=== PATIENT | female | born 1945 | race Caucasian/White ===

== ENCOUNTER → 2017-11-08 | Outpatient (CLI) | payer MEDICARE, OTHER ==
[~2017-11-08] MED LIST: ACEDIPPM PO; AMLO5 PO; ASPI325 PO; Amoxicillin500 M1 PO; CENTRUM SILVER1 EAC2 PO; CEPH500 PO; CHOL10002 PO; CLIN1TS; ESTR1 PO; Estrace Vagin42.5 GM VAG; IBUP800 PO; LEVSOD100 PO; LEVSOD88 PO; LOSA25 PO; LOSARTAN HCTZ PO; MAGGLU250 PO; MAGOXI400 PO; MELA3 PO; METF500 PO; METF500C PO; MINO100 PO; MULVITMIND PO; Neurontin 300300 MG PO; PREG150 PO; Percocet 5-3251 EACH PO; Restasis1 EACH; SELENIUM PO; SELENIUM200 MCG PO; SIMV40 PO; TELM80/12.5 PO; VITAMIN D-32000 UNIT PO; WARF5 PO
[2017-11-08 10:39] LABS: Source, Urine Clean Catch
[2017-11-08 13:23] LABS: Bilirubin, Urine Neg (Neg); Blood, Urine 3+ (Neg); Glucose Qualitative, Urine Neg (Neg); Ketones, Urine Neg (Neg); Leukocyte Esterase, Urine 3+ (Neg); Nitrite, Urine Pos (Neg); Protein, Urine 2+ (Neg); Urobilinogen, Urine NORM (Normal); pH, Urine 6.5 (5.0-8.0)
[2017-11-08 13:42] LABS: Appearance, Urine Turbid (Clear); Color, Urine Yellow (P-Yellow)
[2017-11-08 13:43] LABS: Bacteria Many /hpf; White Blood Cells, Urine TNTC /hpf (0-5)
[2017-11-08 13:45] LABS: Squamous Epithelial Cells Few /hpf (Few)
== END | disposition home or self-care (01) ==
LOC: LAB 09:35
PROVIDERS: Nurse Practitioner Obstetrics & Gynecology
DX: R30.0 Dysuria (principal)
CPT/HCPCS: 81001; 87077; 87086; 87186

== ENCOUNTER → 2017-11-24 | Outpatient (CLI) | payer MEDICARE, OTHER ==
[~2017-11-24] MED LIST changes: -ASPI325 PO; -Amoxicillin500 M1 PO; -CENTRUM SILVER1 EAC2 PO; -CLIN1TS; -Estrace Vagin42.5 GM VAG; -IBUP800 PO; -LEVSOD88 PO; -LOSA25 PO; -MAGOXI400 PO; -MELA3 PO; -METF500C PO; -Neurontin 300300 MG PO; -Percocet 5-3251 EACH PO; -Restasis1 EACH; -SELENIUM200 MCG PO; -VITAMIN D-32000 UNIT PO
[2017-11-24 17:17] LABS: Source, Urine Clean Catch
[2017-11-24 18:23] LABS: Bilirubin, Urine Neg (Neg); Blood, Urine Neg (Neg); Glucose Qualitative, Urine Neg (Neg); Ketones, Urine Neg (Neg); Leukocyte Esterase, Urine Neg (Neg); Nitrite, Urine Neg (Neg); Protein, Urine Neg (Neg); Specific Gravity, Urine 1.015 (1.003-1.022); Urobilinogen, Urine NORM (Normal); pH, Urine 6.5 (5.0-8.0)
[2017-11-24 18:34] LABS: Appearance, Urine Clear (Clear); Color, Urine No Color (P-Yellow)
== END | disposition home or self-care (01) ==
LOC: LAB SHORT 17:00 → LAB 17:00
PROVIDERS: Nurse Practitioner Obstetrics & Gynecology
DX: R30.0 Dysuria (principal)
CPT/HCPCS: 81003

== ENCOUNTER 2018-02-17 06:16 | Day surgery (SDC) | payer MEDICARE, OTHER ==
[2018-02-15 10:14] LABS: Anion Gap 8 mmol/L (6-16); Blood Urea Nitrogen 20 mg/dL (8-24); Bun/Creatinine Ratio 25.7 (12.0-20.0); CO2, Blood 27 mmol/L (21-32); Calcium, Blood 9.1 mg/dL (8.5-10.1); Chloride, Blood 106 mmol/L (98-108); Creatinine, Blood 0.78 mg/dL (0.40-1.00); Glomerular Filtration Rate >60 (60-); Glucose, Blood 114 mg/dL (70-99); Potassium, Blood 4.1 mmol/L (3.5-5.5); Sodium, Blood 141 mmol/L (136-145)
[2018-02-15 10:18] LABS: Hematocrit 42.2 % (33.0-51.0); Hemoglobin 13.8 g/dL (11.5-16.0); Mean Corpuscular HGB 30.7 pg (26.0-34.0); Mean Corpuscular HGB Conc 32.7 g/dL (31.5-36.5); Mean Corpuscular Volume 94 fL (80-100); Mean Platelet Volume 10.9 fL (9.1-12.4); Platelet Count 280 K/mm3 (150-400); RDW Coefficient Variation 12.3 % (11.7-14.2); RDW Standard Deviation 42.5 fL (35.1-46.3); White Blood Cell Count 5.72 K/mm3 (4.00-11.30)
[~2018-02-17] VITALS: Ht 154.9 cm; Wt 86.6 kg
[~2018-02-17 06:16] MED LIST changes: +ASPI325 PO; +CENTRUM SILVER1 EAC2 PO; +CLIN1TS; +Estrace Vagin42.5 GM VAG; +LEVSOD88 PO; +LOSA25 PO; +MAGOXI400 PO; +MELA3 PO; +Neurontin 300300 MG PO; +Restasis1 EACH; +SELENIUM200 MCG PO; +VITAMIN D-32000 UNIT PO
[2018-02-17] MEDS ORDERED: Amoxicillin500 M1 PO (11:27)
[2018-02-17] MEDS ORDERED: METF500C PO (11:28)
[2018-02-18 04:12] LABS: BASOPHILS ABSOLUTE AUTO 0.01 K/mm3 (0.00-0.23); BASOPHILS PERCENT AUTO 0 % (0-2); EOSINOPHILS PERCENT AUTO 0 % (0-6); Hematocrit 35.4 % (33.0-51.0); Hemoglobin 11.6 g/dL (11.5-16.0); IMMATURE GRAN ABSOLUTE AUTO 0.03 K/mm3 (0.00-0.10); IMMATURE GRAN PERCENT AUTO 0 % (0-1); LYMPHOCYTES ABSOLUTE AUTO 2.13 K/mm3 (0.84-5.20); LYMPHOCYTES PERCENT AUTO 25 % (21-46); MONOCYTES ABSOLUTE AUTO 0.44 K/mm3 (0.16-1.47); MONOCYTES PERCENT AUTO 5 % (4-13); Mean Corpuscular HGB 30.8 pg (26.0-34.0); Mean Corpuscular HGB Conc 32.8 g/dL (31.5-36.5); Mean Corpuscular Volume 94 fL (80-100); Mean Platelet Volume 11.1 fL (9.1-12.4); NEUTROPHILS ABSOLUTE AUTO 6.06 K/mm3 (1.96-9.15); NEUTROPHILS PERCENT AUTO 70 % (41-73); Platelet Count 234 K/mm3 (150-400); RDW Coefficient Variation 12.2 % (11.7-14.2); RDW Standard Deviation 42.6 fL (35.1-46.3); Red Blood Cell Count 3.77 M/mm3 (3.80-5.20); White Blood Cell Count 8.67 K/mm3 (4.00-11.30)
[2018-02-18 04:33] LABS: Anion Gap 8 mmol/L (6-16); Blood Urea Nitrogen 17 mg/dL (8-24); Bun/Creatinine Ratio 22.2 (12.0-20.0); CO2, Blood 27 mmol/L (21-32); Calcium, Blood 8.8 mg/dL (8.5-10.1); Chloride, Blood 106 mmol/L (98-108); Creatinine, Blood 0.77 mg/dL (0.40-1.00); Glomerular Filtration Rate >60 (60-); Glucose, Blood 130 mg/dL (70-99); Potassium, Blood 4.4 mmol/L (3.5-5.5); Sodium, Blood 141 mmol/L (136-145)
[2018-02-18] MEDS ORDERED: Percocet 5-3251 EACH PO (08:17)
[2018-02-18] MEDS ORDERED: IBUP800 PO (08:17)
== END 2018-02-18 13:25 | disposition home or self-care (01) ==
LOC: ORSCMMR 06:16 → ORD 07:30 → ORSCMMR 07:30 → SURS 10:03 → ORSCMMR 02-18 13:25
PROVIDERS: Obstetrics & Gynecology
PROC: 0JQC0ZZ Repair Pelvic Region Subcutaneous Tissue and Fascia, Open Approach (ICD-10-PCS; principal; 2018-02-17 07:30)
DX: N81.10 Cystocele, unspecified (principal); N81.6 Rectocele; I10 Essential (primary) hypertension; E11.42 Type 2 diabetes mellitus with diabetic polyneuropathy; D68.62 Lupus anticoagulant syndrome; E78.5 Hyperlipidemia, unspecified; E07.9 Disorder of thyroid, unspecified; F32.9 Major depressive disorder, single episode, unspecified; Z86.73 Personal history of transient ischemic attack (TIA), and cerebral infarction without residual deficits; Z87.891 Personal history of nicotine dependence; Z79.82 Long term (current) use of aspirin; Z79.899 Other long term (current) drug therapy
CPT/HCPCS: 36415; 80048; 82947; 85025; 85027; 86850; 86900; 86901; J0171; J0690; J1644; J1650; J1885; J2001; J2250; J2310; J2370; J2710; J3010; J7120

== ENCOUNTER → 2018-10-31 | Outpatient (CLI) | payer MEDICARE, OTHER ==
[~2018-10-31] MED LIST changes: +Amoxicillin500 M1 PO; +IBUP800 PO; +METF500C PO; +Percocet 5-3251 EACH PO
[2018-10-31 15:13] LABS: Bilirubin, Urine Neg (Neg); Blood, Urine 2+ (Neg); Glucose Qualitative, Urine Neg (Neg); Ketones, Urine Neg (Neg); Leukocyte Esterase, Urine 3+ (Neg); Nitrite, Urine Neg (Neg); Protein, Urine 3+ (Neg); Specific Gravity, Urine 1.015 (1.003-1.022); Urobilinogen, Urine NORM (Normal)
[2018-10-31 15:21] LABS: Appearance, Urine Cloudy (Clear); Color, Urine Yellow (P-Yellow)
[2018-10-31 15:23] LABS: Squamous Epithelial Cells Few /hpf (Few); White Blood Cells, Urine TNTC /hpf (0-5)
[2018-10-31 15:24] LABS: Bacteria Mod /hpf
== END | disposition home or self-care (01) ==
LOC: LAB 15:04 → LAB SHORT 15:04
PROVIDERS: Nurse Practitioner Obstetrics & Gynecology
DX: R39.9 Unspecified symptoms and signs involving the genitourinary system (principal)
CPT/HCPCS: 81001; 87077; 87086; 87186

== ENCOUNTER → 2018-11-10 | Outpatient (CLI) | payer MEDICARE, OTHER ==
[2018-11-10 16:58] LABS: Source, Urine Clean Catch
[2018-11-10 18:28] LABS: Bilirubin, Urine Neg (Neg); Blood, Urine Neg (Neg); Glucose Qualitative, Urine Neg (Neg); Ketones, Urine Neg (Neg); Leukocyte Esterase, Urine Neg (Neg); Nitrite, Urine Neg (Neg); Protein, Urine Neg (Neg); Urobilinogen, Urine NORM (Normal)
[2018-11-10 18:46] LABS: Appearance, Urine Clear (Clear); Color, Urine Yellow (P-Yellow)
== END | disposition home or self-care (01) ==
LOC: LAB SHORT 16:53 → LAB 16:53
PROVIDERS: Nurse Practitioner Obstetrics & Gynecology
DX: N39.0 Urinary tract infection, site not specified (principal)
CPT/HCPCS: 81003

== ENCOUNTER 2020-04-25 11:59 | Inpatient (IN) | payer MEDICARE, OTHER ==
[~2020-04-25] VITALS: Ht 154.9 cm; Wt 90.7 kg
[~2020-04-25 11:59] MED LIST changes: -LEVSOD88 PO; -LOSA25 PO; -METF500C PO; -Neurontin 300300 MG PO; -Restasis1 EACH
[2020-04-25 13:14] LABS: BASOPHILS ABSOLUTE AUTO 0.05 K/mm3 (0.00-0.23); BASOPHILS PERCENT AUTO 1 % (0-2); EOSINOPHILS ABSOLUTE AUTO 0.11 K/mm3 (0.00-0.68); EOSINOPHILS PERCENT AUTO 2 % (0-6); Hematocrit 43.2 % (33.0-51.0); IMMATURE GRAN ABSOLUTE AUTO 0.02 K/mm3 (0.00-0.10); IMMATURE GRAN PERCENT AUTO 0 % (0-1); LYMPHOCYTES ABSOLUTE AUTO 2.42 K/mm3 (0.84-5.20); LYMPHOCYTES PERCENT AUTO 45 % (21-46); MONOCYTES ABSOLUTE AUTO 0.39 K/mm3 (0.16-1.47); MONOCYTES PERCENT AUTO 7 % (4-13); Mean Corpuscular HGB 29.8 pg (26.0-34.0); Mean Corpuscular HGB Conc 32.4 g/dL (31.5-36.5); Mean Corpuscular Volume 92 fL (80-100); Mean Platelet Volume 11.1 fL (9.1-12.4); NEUTROPHILS ABSOLUTE AUTO 2.34 K/mm3 (1.96-9.15); NEUTROPHILS PERCENT AUTO 44 % (41-73); Platelet Count 291 K/mm3 (150-400); RDW Coefficient Variation 13.2 % (11.7-14.2); RDW Standard Deviation 45.4 fL (35.1-46.3); White Blood Cell Count 5.33 K/mm3 (4.00-11.30)
[2020-04-25] MEDS ORDERED: METF500 PO (13:19)
[2020-04-25] MEDS ORDERED: Neurontin800 MG PO (13:20)
[2020-04-25] MEDS ORDERED: LOSA25 PO (13:20)
[2020-04-25] MEDS ORDERED: LEVSOD75 PO (13:22)
[2020-04-25] MEDS ORDERED: ZOCOR20 MG PO (13:22)
[2020-04-25] MEDS ORDERED: Amoxicillin500 MG PO (13:23)
[2020-04-25 13:25] LABS: Alanine Aminotransfer (ALT/SGP 24 U/L (12-78); Albumin, Blood 3.8 g/dL (3.4-5.0); Albumin/Globulin Ratio 1.1 (0.8-1.8); Alk Phos 62 U/L (50-136); Anion Gap 8 mmol/L (6-16); Aspartate Aminotrans (AST/SGOT 28 U/L (12-37); Bilirubin, Total 0.3 mg/dL (0.1-1.0); Blood Urea Nitrogen 22 mg/dL (8-24); Bun/Creatinine Ratio 25.4 (12.0-20.0); CO2, Blood 22 mmol/L (21-32); Calcium, Blood 9.3 mg/dL (8.5-10.1); Chloride, Blood 109 mmol/L (98-108); Creatinine, Blood 0.87 mg/dL (0.40-1.00); Globulin, Blood 3.4 g/dL (2.2-4.0); Glomerular Filtration Rate >60 (60-); Glucose, Blood 102 mg/dL (70-99); Sodium, Blood 139 mmol/L (136-145); Total Protein, Blood 7.2 g/dL (6.4-8.2); Troponin I 0.466 ng/mL (0.000-0.040)
[2020-04-25 15:28] LABS: International Normalized Ratio 0.99; Prothrombin Time Results 10.6 Sec (9.7-11.5)
[2020-04-25] MEDS ORDERED: Restasis1 EACH BOTHEYES (15:46)
--- NOTE | 2020-04-25 19:14 | NUR ---
PT ADMITTED TO FLOOR 1800. PT A/O PLEASANT COOP DENIES CHEST PAIN OR PRESSURE. H/R REG, NO MURMER NOTED. TELE PLACED. LUNGS CLEAR RESP EASY, UNLABORED. ON R.A. BT X4 LAST BM STATES THIS AM. VOIDS FREQUENTLY. STATES NO SKIN ISSUES. BED IN LOW POSITION, CALL LITE IN REACH, CALLS APPROP. SETTLED TO BED. OBTAINED DINNER FOR PT. NOTIFIED IMELDA MCNULTY FOR HEPARIN ORDERS. ALSO PENDING ANGIO TOMORROW AM. NPO MIDNNITE.
[2020-04-26 02:15] LABS: Hematocrit 41.8 % (33.0-51.0); Hemoglobin 13.8 g/dL (11.5-16.0); Mean Corpuscular HGB 30.6 pg (26.0-34.0); Mean Corpuscular Volume 93 fL (80-100); Mean Platelet Volume 10.4 fL (9.1-12.4); Platelet Count 272 K/mm3 (150-400); RDW Coefficient Variation 13.3 % (11.7-14.2); RDW Standard Deviation 45.5 fL (35.1-46.3); Red Blood Cell Count 4.51 M/mm3 (3.80-5.20)
[2020-04-26 02:41] LABS: Anion Gap 7 mmol/L (6-16); Blood Urea Nitrogen 21 mg/dL (8-24); Bun/Creatinine Ratio 22.6 (12.0-20.0); CHOL/HDL RATIO 3.4; CO2, Blood 25 mmol/L (21-32); Chloride, Blood 110 mmol/L (98-108); Cholesterol 223 mg/dL (50-200); Creatinine, Blood 0.93 mg/dL (0.40-1.00); Glomerular Filtration Rate >60 (60-); Glucose, Blood 127 mg/dL (70-99); HDL Cholesterol 65 mg/dL (>39); LDL/HDL RATIO 1.5; Low Density Lipoprotein Chol 98 mg/dL (0-110); Potassium, Blood 3.7 mmol/L (3.5-5.5); Sodium, Blood 142 mmol/L (136-145); Triglycerides 300 mg/dL (30-160); Very Low Density Lipoprot Chol 60 mg/dL (6-32)
--- NOTE | 2020-04-26 07:36 | NUR ---
SHIFT SUMMARY PT A&0 X4. BP ELEVATED, OTHERWISE VSS. SPO2 > 92% ON RA. NO EVENTS OVER NIGHT. PT DENIES CP, REPORTS SOME "PRESSURE W/ EXERTION" THAT GOES AWAY. PT NPO SINCE MIDNIGHT FOR ANGIO TODAY. HEPARIN GTT INFUSING PER ORDERS. NS GTT INFUSING PER ORDERS. REPORT GIVEN TO DAY SHIFT RN.
--- NOTE | 2020-04-26 18:31 | NUR ---
PT RETURNED FROM H/CTR. STATES TO [facility] FOR FURTHER IINTERVENTION. BYPASS. SEE NOTIFY ORDERPLACED BY THIS RN. HEPARIN RESTARTED PER ORDERS. BED IN LOW POSITION, CALL LITE IN REACH, CALLS APPROP
--- NOTE | 2020-04-26 18:34 | NUR ---
SPOKE TO DR ALVES. DO RESTART HEPARIN. DO NOT DEFLATE TR BAND YET. IF NO BED IN 4 HRS, 0, STOP HEPARIN DRIP. WAIT ONE HOUR, THEN BEGIN DEFLATING TR BAND, 1 CC / 1/2 HR. ONCE DEFLATED, KEEP HEPARIN OFF FOR 4 HRS, THEN ALEKSANDRA RESTART HEPARIN DRIP. CALLED AND UPDATEDD ALEKSANDRA MAR STOP N/S.
--- NOTE | 2020-04-26 21:57 | NUR ---
PRIMARY RN CALLED REPORT TO PRICILA MICHAEL AT [facility] AT 2150. PT TRASNPORTED VIA GROUND AMBULANCE AT 2145. REPORT GIVEN TO PARAMEDICS AND PRICILA MICHAEL. BELONGINGS WITH PT. PT D/C'D WITH 20G L HAND, 20G R FA, AND R RADIAL TR BAND.
== END 2020-04-26 21:45 | disposition short-term general hospital (02) | DRG 282 ==
LOC: ER 11:59 → PCU 14:52
PROVIDERS: Nurse Practitioner Acute Care; Physician Assistant; ADMIT Internal Medicine
PROC: 4A023N7 Measurement of Cardiac Sampling and Pressure, Left Heart, Percutaneous Approach (ICD-10-PCS; principal; 2020-04-26)
PROC: B211YZZ Fluoroscopy of Multiple Coronary Arteries using Other Contrast (ICD-10-PCS; 2020-04-26)
DX: I21.4 Non-ST elevation (NSTEMI) myocardial infarction (principal); I10 Essential (primary) hypertension; E11.9 Type 2 diabetes mellitus without complications; E03.9 Hypothyroidism, unspecified; Z87.891 Personal history of nicotine dependence; Z79.84 Long term (current) use of oral hypoglycemic drugs; Z86.718 Personal history of other venous thrombosis and embolism; E66.01 Morbid (severe) obesity due to excess calories; Z68.37 Body mass index [BMI] 37.0-37.9, adult
CPT/HCPCS: 36415; 71046; 76937; 80048; 80053; 80061; 82947; 83880; 84443; 84484; 85025; 85027; 85610; 85730; 93005; 93010; 93454; 99152; 99153; 99285-25; A9270; A9270-GY; C1769; C1894; J1644; J2250; J3010; J7030; J7050; Q9967; U0002

== ENCOUNTER → 2021-07-08 | Outpatient (CLI) | payer MEDICARE, OTHER ==
[~2021-07-08] MED LIST changes: +Amoxicillin500 MG PO; +LEVSOD75 PO; +LOSA25 PO; +Neurontin800 MG PO; +Restasis1 EACH BOTHEYES; +ZOCOR20 MG PO
== END ==
LOC: LAB SHORT 17:11
DX: R30.0 Dysuria (principal)
CPT/HCPCS: 87077; 87086; 87186

== ENCOUNTER → 2022-05-01 | Outpatient (CLI) | payer MEDICARE, OTHER ==
[~2022-05-01] MED LIST changes: +ATOR40TA PO; +CLIN1TS TOP; +DOCU100 PO; +ESTRADIOL VAG; +FURO20 PO; +METO50 PO; +OMEP20ER PO; +Vitamin D1000 UNI1 PO
== END | disposition home or self-care (01) ==
LOC: LAB SHORT 09:38
DX: R30.0 Dysuria (principal)
CPT/HCPCS: 87077; 87086; 87186

== ENCOUNTER 2023-08-28 10:28 | Inpatient (IN) | payer MEDICARE, OTHER ==
[~2023-08-28] VITALS: Ht 154.9 cm; Wt 62.6 kg
[~2023-08-28 10:28] MED LIST changes: +ALBU90OI INH; +FLUTICASONE-SA1 EAC8 INH; +IPRATROPIUM BRO30 ML; +POTA10T PO; +SENN187 PO
[2023-08-28] MEDS ORDERED: JANTOVEN6 MG PO (10:41)
[2023-08-28 11:05] LABS: BASOPHILS ABSOLUTE AUTO 0.05 K/mm3 (0.00-0.23); BASOPHILS PERCENT AUTO 1 % (0-2); EOSINOPHILS ABSOLUTE AUTO 0.18 K/mm3 (0.00-0.68); EOSINOPHILS PERCENT AUTO 3 % (0-6); Hematocrit 31.1 % (33.0-51.0); Hemoglobin 9.8 g/dL (11.5-16.0); IMMATURE GRAN ABSOLUTE AUTO 0.02 K/mm3 (0.00-0.10); IMMATURE GRAN PERCENT AUTO 0 % (0-1); LYMPHOCYTES ABSOLUTE AUTO 1.55 K/mm3 (0.84-5.20); LYMPHOCYTES PERCENT AUTO 24 % (21-46); MONOCYTES ABSOLUTE AUTO 0.44 K/mm3 (0.16-1.47); MONOCYTES PERCENT AUTO 7 % (4-13); Mean Corpuscular HGB 26.5 pg (26.0-34.0); Mean Corpuscular HGB Conc 31.5 g/dL (31.5-36.5); Mean Corpuscular Volume 84 fL (80-100); Mean Platelet Volume 10.2 fL (9.1-12.4); NEUTROPHILS ABSOLUTE AUTO 4.29 K/mm3 (1.96-9.15); NEUTROPHILS PERCENT AUTO 66 % (41-73); Platelet Count 412 K/mm3 (150-400); RDW Coefficient Variation 15.6 % (11.7-14.2); RDW Standard Deviation 47.2 fL (35.1-46.3); White Blood Cell Count 6.53 K/mm3 (4.00-11.30)
[2023-08-28 11:22] LABS: International Normalized Ratio 2.47; Prothrombin Time Results 24.6 Sec (9.7-11.5)
[2023-08-28 11:24] LABS: Albumin, Blood 3.9 g/dL (3.4-5.0); Albumin/Globulin Ratio 1.1 (0.8-1.8); Bilirubin, Total 0.5 mg/dL (0.1-1.0); Bun/Creatinine Ratio 31.1 (12.0-20.0); Calcium, Blood 9.5 mg/dL (8.5-10.1); Creatinine, Blood 1.51 mg/dL (0.40-1.00); Globulin, Blood 3.4 g/dL (2.2-4.0); Potassium, Blood 4.9 mmol/L (3.5-5.5); Total Protein, Blood 7.3 g/dL (6.4-8.2)
[2023-08-28] MEDS ORDERED: WARF6 PO (15:23)
[2023-08-28 16:01] LABS: Percent Saturation 4.2 % (15.0-50.0)
[2023-08-28 17:26] VITALS: BP 152/81
--- NOTE | 2023-08-28 18:24 | NUR ---
SHIFT SUMMARY 1645 RECEIVED PT TO RM 326 VIA GURNEY FROM ER. PT ABLE TO TX SELF TO BTHRM AND THEN TO BED. PT UP USING FWW, BRINGING IN HOME WALKER. PT ON 2L TO RM BUT SAT'S @ 100%. PT PLACED ON RA WITH SAT'S @ 98%. PT IS A&O, PLEASANT AND CO-OP. REQUESTED LACTOSE FREE DIET WITH ADA. PT ADMITTED FOR RESP FAILURE WITH HYPOXIA. SOB X1 MONTH. PT RECEIVING IV LASIX, REPORTING PO LASIX AT HOME WAS RECENTLY CHANGED TO TORSEMIDE. PT CURRENTLY EATING DINNER. NO C/O. DENIED FURTHER NEEDS. CALL LT IN REACH.
[2023-08-28 19:20] VITALS: BP 87/51
[2023-08-28 21:20] VITALS: BP 106/65
[2023-08-29 03:08] VITALS: BP 107/74
--- NOTE | 2023-08-29 05:55 | NUR ---
SHIFT SUMMARY MS DIEHL HAD SAT 87% ON ROOM AIR WHEN SHE FELL ASLEEP LAST EVENING AND HAS SLEPT WITH 2L NC OXYGEN ON. DR PATEL INFORMED AND TELEPHONE ORDER PLACED IN [employer] FOR OXYGEN THERAPY. TELEMETRY SR, NO CALLS FROM [employer]. SHE APPEARED TO HAVE SLEPT WELL AND SAID SHE RESTED OK. SHE DENIES ANY PAIN THIS MORNING. BED LOW, CALL LIGHT IN REACH. SHE HAS BEEN USING THE CALL SYSTEM TO GET STAND BY ASSISTANCE TO WALK TO BATHROOM WITH WALKER SHE GETS WEAK AND SOMETIMES DIZZY WHEN AMBULATING.
[2023-08-29 06:07] LABS: International Normalized Ratio 2.1; Prothrombin Time Results 21.1 Sec (9.7-11.5)
[2023-08-29 06:59] LABS: Bun/Creatinine Ratio 27.9 (12.0-20.0); Calcium, Blood 9.5 mg/dL (8.5-10.1); Creatinine, Blood 1.79 mg/dL (0.40-1.00); Potassium, Blood 4.3 mmol/L (3.5-5.5)
[2023-08-29 07:47] VITALS: BP 106/51
[2023-08-29 15:33] VITALS: BP 104/61
--- NOTE | 2023-08-29 16:03 | NUR ---
SHIFT SUMMARY PT RESTING QUIETLY AT START OF SHIFT. WOKE EASILY AND THEN REQUESTING SBA TO BTHRM WHILE STAFF IN RM. PT ABLE TO USE HER OWN FWW TO AMBULATE IN RM AND TO BTHRM. NO S/SX OF DISTRESS NOTED OR REPORTED. STRICT URINE RECORDED THRU OUT THE DAY. RENAL US DONE WITH PRE AND POST VOID. PT HAS REMAINED ON RA AGAIN TODAY; BIOX 95-100%. BP MEDS HELD THIS AM UNTIL DR NEAL IN TO SEE PT AND DISCUSS PLAN OF CARE. BP MEDS ON EMAR TO BE ADJUSTED TO HOME DOSE. PHARMACY HAD VERIFIED MEDICATIONS WHILE PT IN ER, BUT DID NOT UPDATE DOSES. HOME MEDICATIONS WERE THEN UPDATED UPON ADMISSION TO MEDICAL, BUT CHANGES DID NOT GET SAVED TO CHART WHEN COMPLETED FOR SOME REASON, THEREFORE HOME DOSES WERE STILL SHOWING INCORRECT ON CHART. PT HAS BEEN PLEASANT AND CO-OP. CALL APPROPRIATELY NEEDED. DENIED FURTHER NEEDS AT THIS TIME.
[2023-08-29 19:21] VITALS: BP 104/71
--- NOTE | 2023-08-30 03:53 | NUR ---
1900: ASSUMED CARE OF PT, REPORT RECEIVED FROM DAY SHIFT RN. PT LAYING IN BED ON HER BACK. A/O X4 INDEPENDENT IN THE ROOM. ABLE TO MAKE NEEDS KNOWN. NO ACUTE DISTRESS, NEEDS, OR CHANGES DURING THE SHIFT. VSS, TOLERATED MEDICATIONS WELL. NEEDS ADDRESSED AND SAFETY MEASURES TAKEN.
[2023-08-30 04:46] VITALS: BP 104/68
[2023-08-30 05:30] LABS: Hematocrit 31.2 % (33.0-51.0); Hemoglobin 9.9 g/dL (11.5-16.0); Mean Corpuscular HGB 26.5 pg (26.0-34.0); Mean Corpuscular HGB Conc 31.7 g/dL (31.5-36.5); Mean Corpuscular Volume 84 fL (80-100); Mean Platelet Volume 10.4 fL (9.1-12.4); Platelet Count 358 K/mm3 (150-400); RDW Coefficient Variation 15.8 % (11.7-14.2); RDW Standard Deviation 47.7 fL (35.1-46.3); Red Blood Cell Count 3.73 M/mm3 (3.80-5.20); White Blood Cell Count 7.24 K/mm3 (4.00-11.30)
[2023-08-30 05:39] LABS: International Normalized Ratio 2.46; Prothrombin Time Results 24.5 Sec (9.7-11.5)
[2023-08-30 06:00] LABS: Albumin, Blood 3.5 g/dL (3.4-5.0); Anion Gap 7 mmol/L (6-16); Blood Urea Nitrogen 48 mg/dL (8-24); Bun/Creatinine Ratio 33.3 (12.0-20.0); CO2, Blood 29 mmol/L (21-32); Calcium, Blood 9.3 mg/dL (8.5-10.1); Chloride, Blood 104 mmol/L (98-108); Creatinine, Blood 1.44 mg/dL (0.40-1.00); Glomerular Filtration Rate 37 (60-); Glucose, Blood 123 mg/dL (70-99); Magnesium, Blood 2.3 mg/dL (1.6-2.4); Phosphorus, Blood 4.4 mg/dL (2.5-4.9); Potassium, Blood 3.6 mmol/L (3.5-5.5); Sodium, Blood 140 mmol/L (136-145)
[2023-08-30 07:20] VITALS: BP 96/85
[2023-08-30] MEDS ORDERED: ASPI81CH PO (11:51)
[2023-08-30] MEDS ORDERED: GABA300 PO (11:56)
[2023-08-30] MEDS ORDERED: FURO40 PO (12:03)
--- NOTE | 2023-08-30 13:25 | NUR ---
SHIFT SUMMARY A7oX4, INDEPENDENT IN ROOM, COOPERATIVE. NO ACUTE EVENTS THIS SHIFT. IV REMOVED BY SYSTEMS MANAGER. DISCHARGE PACKET REVIEWED WITH PATIENT. PT DENIES ANY QUESTIONS OR CONCERNS. PATIENT DISCHARGED AT 1300 VIA WHEELCHAIR ESCORT.
== END 2023-08-30 13:02 | disposition home or self-care (01) | DRG 291 ==
LOC: ER 10:28 → MEDS 14:46 → ENPENDDIS 08-30 09:52 → MEDS 08-30 13:02
PROVIDERS: Internal Medicine; Student in an Organized Health Care Education/Training Program; ADMIT Internal Medicine
DX: I13.0 Hypertensive heart and chronic kidney disease with heart failure and stage 1 through stage 4 chronic kidney disease, or unspecified chronic kidney disease (principal); I50.33 Acute on chronic diastolic (congestive) heart failure; J96.01 Acute respiratory failure with hypoxia; N17.9 Acute kidney failure, unspecified; Z66 Do not resuscitate; I27.20 Pulmonary hypertension, unspecified; I35.0 Nonrheumatic aortic (valve) stenosis; E11.22 Type 2 diabetes mellitus with diabetic chronic kidney disease; N18.30 Chronic kidney disease, stage 3 unspecified; D50.9 Iron deficiency anemia, unspecified; E03.9 Hypothyroidism, unspecified; J44.9 Chronic obstructive pulmonary disease, unspecified; I25.2 Old myocardial infarction; Z86.718 Personal history of other venous thrombosis and embolism; Z86.711 Personal history of pulmonary embolism; Z79.01 Long term (current) use of anticoagulants; Z79.84 Long term (current) use of oral hypoglycemic drugs; Z95.1 Presence of aortocoronary bypass graft; Z87.891 Personal history of nicotine dependence; Z79.82 Long term (current) use of aspirin; Z79.51 Long term (current) use of inhaled steroids; Z79.890 Hormone replacement therapy
CPT/HCPCS: 36415; 71046; 76770; 80048; 80053; 80069; 82728; 82947; 83540; 83550; 83735; 83880; 84443; 84484; 85025; 85027; 85610; 93005; 93010; 93308; 93321; 94640; 94664; 94760; 96374; 97116; 97162; 97530; 99285-25; A9270; J1940

== ENCOUNTER 2023-09-09 15:09 | Emergency (ER) | payer MEDICARE, OTHER ==
[~2023-09-09] VITALS: Ht 154.9 cm; Wt 65.8 kg
[~2023-09-09 15:09] MED LIST changes: +ASPI81CH PO; +FURO40 PO; +GABA300 PO; +JANTOVEN6 MG PO; +WARF6 PO
[2023-09-09 16:09] LABS: BASOPHILS ABSOLUTE AUTO 0.05 K/mm3 (0.00-0.23); BASOPHILS PERCENT AUTO 1 % (0-2); EOSINOPHILS ABSOLUTE AUTO 0.12 K/mm3 (0.00-0.68); EOSINOPHILS PERCENT AUTO 2 % (0-6); Hematocrit 30.1 % (33.0-51.0); Hemoglobin 9.2 g/dL (11.5-16.0); IMMATURE GRAN ABSOLUTE AUTO 0.01 K/mm3 (0.00-0.10); IMMATURE GRAN PERCENT AUTO 0 % (0-1); LYMPHOCYTES ABSOLUTE AUTO 1.54 K/mm3 (0.84-5.20); LYMPHOCYTES PERCENT AUTO 24 % (21-46); MONOCYTES ABSOLUTE AUTO 0.43 K/mm3 (0.16-1.47); MONOCYTES PERCENT AUTO 7 % (4-13); Mean Corpuscular HGB 25.3 pg (26.0-34.0); Mean Corpuscular HGB Conc 30.6 g/dL (31.5-36.5); Mean Corpuscular Volume 83 fL (80-100); Mean Platelet Volume 10.4 fL (9.1-12.4); NEUTROPHILS ABSOLUTE AUTO 4.21 K/mm3 (1.96-9.15); NEUTROPHILS PERCENT AUTO 66 % (41-73); Platelet Count 418 K/mm3 (150-400); RDW Coefficient Variation 16.4 % (11.7-14.2); RDW Standard Deviation 49.8 fL (35.1-46.3); Red Blood Cell Count 3.63 M/mm3 (3.80-5.20); White Blood Cell Count 6.36 K/mm3 (4.00-11.30)
[2023-09-09 16:22] LABS: Influenza A, PCR NEGATIVE (NEGATIVE); Influenza B, PCR NEGATIVE (NEGATIVE); Resp Syncytial Virus, PCR NEGATIVE (NEGATIVE); SARS-Cov-2 (COVID-19) PCR, MMC NEGATIVE (NEGATIVE)
[2023-09-09 16:32] LABS: Magnesium, Blood 2.3 mg/dL (1.6-2.4)
[2023-09-09 16:33] LABS: Albumin, Blood 3.6 g/dL (3.4-5.0); Albumin/Globulin Ratio 1.1 (0.8-1.8); Bilirubin, Total 0.3 mg/dL (0.1-1.0); Bun/Creatinine Ratio 39.5 (12.0-20.0); Calcium, Blood 9.3 mg/dL (8.5-10.1); Creatinine, Blood 1.52 mg/dL (0.40-1.00); Globulin, Blood 3.3 g/dL (2.2-4.0); Potassium, Blood 4.4 mmol/L (3.5-5.5); Total Protein, Blood 6.9 g/dL (6.4-8.2)
[2023-09-09 19:17] LABS: Source, Urine Clean Catch
[2023-09-09 19:20] VITALS: BP 132/74
[2023-09-09 19:21] LABS: Appearance, Urine Hazy (Clear); Bilirubin, Urine Neg (Neg); Blood, Urine Neg (Neg); Color, Urine Yellow (P-Yellow); Glucose Qualitative, Urine Neg (Neg); Ketones, Urine Neg (Neg); Leukocyte Esterase, Urine Neg (Neg); Nitrite, Urine Neg (Neg); Protein, Urine Neg (Neg); Specific Gravity, Urine 1.015 (1.003-1.022); Urobilinogen, Urine NORM (Normal)
[2023-09-09 19:27] LABS: Bacteria Rare /hpf; Red Blood Cells, Urine 0-2 /hpf (0-2); Squamous Epithelial Cells Mod /hpf (Few); White Blood Cells, Urine 0-2 /hpf (0-5)
[2023-09-10] MEDS ORDERED: ASPI325 PO (08:59)
[2023-09-10] MEDS ORDERED: Amoxicillin500 MG PO (08:59)
[2023-09-10] MEDS ORDERED: TORSE20 PO (09:02)
[2023-09-10] MEDS ORDERED: OMEP20ER PO (09:03)
== END 2023-09-09 19:35 | disposition left against medical advice (07) ==
LOC: ER 15:09
PROVIDERS: Student in an Organized Health Care Education/Training Program
DX: R53.1 Weakness (principal); Z53.21 Procedure and treatment not carried out due to patient leaving prior to being seen by health care provider
CPT/HCPCS: 0241U; 71046; 80053; 81001; 83735; 83880; 85025; 86850; 86900; 86901; 93005; 93010; 99283-25

== ENCOUNTER 2023-09-10 08:02 | Emergency (ER) | payer MEDICARE, OTHER ==
[~2023-09-10] VITALS: Ht 154.9 cm; Wt 65.8 kg
[~2023-09-10 08:02] MED LIST changes: +GABA100 PO; -GABA300 PO; -Vitamin D1000 UNI1 PO; +Vitamin D2000 UNIT PO
[2023-09-10] MEDS ORDERED: ASPI81CH PO (08:59)
[2023-09-10] MEDS ORDERED: Amoxicillin500 MG PO (08:59)
[2023-09-10] MEDS ORDERED: TORSE20 PO (09:02)
[2023-09-10] MEDS ORDERED: OMEP20ER PO (09:03)
[2023-09-10 11:05] LABS: BASOPHILS ABSOLUTE AUTO 0.07 K/mm3 (0.00-0.23); BASOPHILS PERCENT AUTO 1 % (0-2); EOSINOPHILS ABSOLUTE AUTO 0.09 K/mm3 (0.00-0.68); EOSINOPHILS PERCENT AUTO 2 % (0-6); Hematocrit 30.6 % (33.0-51.0); Hemoglobin 9.4 g/dL (11.5-16.0); IMMATURE GRAN ABSOLUTE AUTO 0.02 K/mm3 (0.00-0.10); IMMATURE GRAN PERCENT AUTO 0 % (0-1); LYMPHOCYTES ABSOLUTE AUTO 1.43 K/mm3 (0.84-5.20); LYMPHOCYTES PERCENT AUTO 26 % (21-46); MONOCYTES ABSOLUTE AUTO 0.34 K/mm3 (0.16-1.47); MONOCYTES PERCENT AUTO 6 % (4-13); Mean Corpuscular HGB 25.1 pg (26.0-34.0); Mean Corpuscular HGB Conc 30.7 g/dL (31.5-36.5); Mean Corpuscular Volume 82 fL (80-100); Mean Platelet Volume 10.7 fL (9.1-12.4); NEUTROPHILS ABSOLUTE AUTO 3.49 K/mm3 (1.96-9.15); NEUTROPHILS PERCENT AUTO 64 % (41-73); Platelet Count 439 K/mm3 (150-400); RDW Coefficient Variation 16.5 % (11.7-14.2); RDW Standard Deviation 49.1 fL (35.1-46.3); Red Blood Cell Count 3.75 M/mm3 (3.80-5.20); White Blood Cell Count 5.44 K/mm3 (4.00-11.30)
[2023-09-10 11:19] LABS: International Normalized Ratio 2.61
[2023-09-10 11:27] LABS: Albumin, Blood 3.9 g/dL (3.4-5.0); Albumin/Globulin Ratio 1.2 (0.8-1.8); Bilirubin, Total 0.4 mg/dL (0.1-1.0); Bun/Creatinine Ratio 38.9 (12.0-20.0); Calcium, Blood 9.4 mg/dL (8.5-10.1); Creatinine, Blood 1.31 mg/dL (0.40-1.00); Globulin, Blood 3.3 g/dL (2.2-4.0); Potassium, Blood 3.9 mmol/L (3.5-5.5); Total Protein, Blood 7.2 g/dL (6.4-8.2)
[2023-09-10 13:46] VITALS: BP 151/81
== END 2023-09-10 14:03 | disposition home or self-care (01) ==
LOC: ER 08:02
PROVIDERS: Physician Assistant
DX: R06.09 Other forms of dyspnea (principal); I10 Essential (primary) hypertension; E03.9 Hypothyroidism, unspecified; E11.9 Type 2 diabetes mellitus without complications; Z86.711 Personal history of pulmonary embolism; Z87.891 Personal history of nicotine dependence; Z79.84 Long term (current) use of oral hypoglycemic drugs; Z79.82 Long term (current) use of aspirin; Z79.01 Long term (current) use of anticoagulants; Z79.899 Other long term (current) drug therapy; Z88.1 Allergy status to other antibiotic agents
CPT/HCPCS: 80053; 83880; 84484; 85025; 85610; 93005; 93010; 99285-25

== ENCOUNTER 2023-09-14 11:07 | Inpatient (IN) | payer MEDICARE, OTHER ==
[~2023-09-14] VITALS: Ht 154.9 cm; Wt 61.1 kg
[~2023-09-14 11:07] MED LIST changes: +TORSE20 PO
[2023-09-14 11:46] LABS: BASOPHILS ABSOLUTE AUTO 0.03 K/mm3 (0.00-0.23); BASOPHILS PERCENT AUTO 1 % (0-2); EOSINOPHILS PERCENT AUTO 0 % (0-6); Hematocrit 30.2 % (33.0-51.0); Hemoglobin 9.2 g/dL (11.5-16.0); IMMATURE GRAN ABSOLUTE AUTO 0.01 K/mm3 (0.00-0.10); IMMATURE GRAN PERCENT AUTO 0 % (0-1); LYMPHOCYTES ABSOLUTE AUTO 1.51 K/mm3 (0.84-5.20); LYMPHOCYTES PERCENT AUTO 29 % (21-46); MONOCYTES ABSOLUTE AUTO 0.59 K/mm3 (0.16-1.47); MONOCYTES PERCENT AUTO 11 % (4-13); Mean Corpuscular HGB 24.4 pg (26.0-34.0); Mean Corpuscular HGB Conc 30.5 g/dL (31.5-36.5); Mean Corpuscular Volume 80 fL (80-100); Mean Platelet Volume 10.3 fL (9.1-12.4); NEUTROPHILS ABSOLUTE AUTO 3.08 K/mm3 (1.96-9.15); NEUTROPHILS PERCENT AUTO 59 % (41-73); Platelet Count 375 K/mm3 (150-400); RDW Coefficient Variation 16.6 % (11.7-14.2); Red Blood Cell Count 3.77 M/mm3 (3.80-5.20); White Blood Cell Count 5.22 K/mm3 (4.00-11.30)
[2023-09-14 11:54] LABS: International Normalized Ratio 2.07; Prothrombin Time Results 20.9 Sec (9.7-11.5)
[2023-09-14 12:22] LABS: Albumin, Blood 3.4 g/dL (3.4-5.0); Albumin/Globulin Ratio 1.1 (0.8-1.8); Bilirubin, Total 0.6 mg/dL (0.1-1.0); Bun/Creatinine Ratio 34.5 (12.0-20.0); Calcium, Blood 9.1 mg/dL (8.5-10.1); Creatinine, Blood 1.39 mg/dL (0.40-1.00); Magnesium, Blood 2.1 mg/dL (1.6-2.4); Potassium, Blood 4.4 mmol/L (3.5-5.5); Total Protein, Blood 6.4 g/dL (6.4-8.2)
[2023-09-14 12:31] LABS: Source, Urine Clean Catch
[2023-09-14 12:38] LABS: Appearance, Urine Clear (Clear); Bilirubin, Urine Neg (Neg); Blood, Urine Neg (Neg); Color, Urine Yellow (P-Yellow); Glucose Qualitative, Urine Neg (Neg); Ketones, Urine 1+ (Neg); Leukocyte Esterase, Urine Neg (Neg); Nitrite, Urine Neg (Neg); Protein, Urine 2+ (Neg); Specific Gravity, Urine 1.015 (1.003-1.022); Urobilinogen, Urine NORM (Normal)
[2023-09-14 12:42] LABS: SARS-Cov-2 (COVID-19) PCR, MMC POSITIVE (NEGATIVE)
[2023-09-14 12:43] LABS: Influenza A Negative (NEGATIVE); Influenza B Negative (NEGATIVE)
[2023-09-14 12:54] LABS: Bacteria Few /hpf; Red Blood Cells, Urine 0-2 /hpf (0-2); Squamous Epithelial Cells Mod /hpf (Few); White Blood Cells, Urine 0-2 /hpf (0-5); Yeast/Fungi Urine Few /hpf
[2023-09-14 12:55] LABS: Transitional Epithelial Cells Rare /hpf (0-Rare)
[2023-09-14] MEDS ORDERED: FURO40 PO (15:01)
[2023-09-14] MEDS ORDERED: FLUT1DIS2 INH (15:02)
[2023-09-14] MEDS ORDERED: ALBU90OI INH (15:02)
[2023-09-14 16:12] VITALS: BP 105/85
[2023-09-14 16:59] LABS: International Normalized Ratio 1.89; Prothrombin Time Results 19.1 Sec (9.7-11.5)
--- NOTE | 2023-09-14 17:42 | NUR ---
PATIENT ADMITTED FROM ER AT 1620. REPORT RECEIVED FROM PRICILA MOSES. PATIENT A&OX4, SBA/IND TO BATHROOM. 2 RN SKIN CHECK PERFORM, BRUISING NOTED TO RUE. PATIENT DENIES PAIN, HEADACHE, CP/PRESSURE, OR SOB AT THIS TIME. ROOM AIR. CODE STATUS CHANGED TO DNR UPON ARRIVAL. PATIENT IS CURRENTLY RESTING IN BED. CALL LIGHT WITHIN REACH.
[2023-09-14 19:29] VITALS: BP 134/69
[2023-09-15 04:45] VITALS: BP 123/69
[2023-09-15 05:08] LABS: Hematocrit 28.1 % (33.0-51.0); Hemoglobin 8.9 g/dL (11.5-16.0); Mean Corpuscular HGB Conc 31.7 g/dL (31.5-36.5); Mean Corpuscular Volume 79 fL (80-100); Mean Platelet Volume 10.6 fL (9.1-12.4); Platelet Count 350 K/mm3 (150-400); RDW Coefficient Variation 16.8 % (11.7-14.2); RDW Standard Deviation 48.6 fL (35.1-46.3); Red Blood Cell Count 3.56 M/mm3 (3.80-5.20); White Blood Cell Count 6.86 K/mm3 (4.00-11.30)
[2023-09-15 05:30] LABS: International Normalized Ratio 1.85; Prothrombin Time Results 18.8 Sec (9.7-11.5)
--- NOTE | 2023-09-15 06:45 | NUR ---
SHIFT SUMMARY NOC PT A/O X 4. PLEASANT AND COOPERATIVE WITH CARE. PT HAS URINARY FREQUENCY AND HAS BEEN INC OF URINE X 3 SO FAR DURING SHIFT. NO C/O OF PAIN FROM RECENT FALL. ON TELE SINUS RHYTHM IN 70'S. PT RECEIVED LOADING DOSE OF WARFARIN 9MG YESTERDAY BEFORE BED. PT IS CURRENTLY RESTING WITH BED IN LOWEST POSITION, AND CALL LIGHT WITHIN REACH.
[2023-09-15 07:00] LABS: Albumin, Blood 3.2 g/dL (3.4-5.0); Bilirubin, Total 0.3 mg/dL (0.1-1.0); Bun/Creatinine Ratio 31.5 (12.0-20.0); Calcium, Blood 8.6 mg/dL (8.5-10.1); Creatinine, Blood 1.24 mg/dL (0.40-1.00); Globulin, Blood 3.2 g/dL (2.2-4.0); Magnesium, Blood 1.9 mg/dL (1.6-2.4); Phosphorus, Blood 2.6 mg/dL (2.5-4.9); Potassium, Blood 3.9 mmol/L (3.5-5.5); Total Protein, Blood 6.4 g/dL (6.4-8.2)
[2023-09-15 07:12] VITALS: BP 116/69
[2023-09-15 15:48] VITALS: BP 107/62
--- NOTE | 2023-09-15 19:22 | NUR ---
PT IS A/OX4, PLEASANT AND COOPERATIVE. THE PT IS UP WITH MINIMAL ASSIST TO THE BATHROOM. THE PT WHEN APPEARS TO BE BREATHING EASILY ON RA SAT'S > 92%, HOWEVER, WHEN LYING DOWN THE PTS' O2 SAT'S DROP INTO THE LOW 80'S TO HIGH 70'S. SO O2 WAS APPLIED AT 2L/MIN. PT HAD 2 RUNS OF SVT TODAY DR. JONES IS AWARE. PT DENIED ANY PAIN T/O THE DAY. CALL LIGHT IN REACH. WILL CONTINUE TO MONITOR AND ASSESS FOR CHANGES.
[2023-09-15 20:22] VITALS: BP 95/55
--- NOTE | 2023-09-16 03:06 | NUR ---
This nurse just informed by telemetry that pt had an 8 beat run of vtach. checked on pt who is asymptomatic and was complaining of some generalized pain. medicated per emar. will report tele event to doctor.
--- NOTE | 2023-09-16 03:13 | NUR ---
doctor Derik [facility] requested pt have cbc and mag labs in am. orders in place alreay.
[2023-09-16 03:27] VITALS: BP 106/70
--- NOTE | 2023-09-16 04:39 | NUR ---
SHIFT SUMMARY PT ALERT AND CURRENTLY HAS COVID. PT ON 2L O2 VIA NC OF YESTERDAY. PT DROPS DOWN IN THE 80S WHEN LYING FLAT. ALSO HAD SOME DECREASES IN O2 WITH AMBULATION. TELEMETRY: SR @ 71 BPM. PT DID HAVE A 8 BEAT RUN OF VTACH. NOTIFIED. CBG AT HS 192. PT IS SBA WITH FWW. PT COMPLAINED OF GEN PAIN AND REBECCA FEET PAIN. MEDICATED PER EMAR WITH TYLENOL. NO OTHER ACUTE EVENTS THIS SHIFT. BED KEPT IN LOWEST POSITION AND PT CALLS APPROPRAITELY FOR NEEDS. WILL CONTINUE TO MONITOR UNTIL END OF SHIFT.
[2023-09-16 06:09] LABS: BASOPHILS PERCENT AUTO 0 % (0-2); EOSINOPHILS PERCENT AUTO 0 % (0-6); Hematocrit 28.3 % (33.0-51.0); Hemoglobin 8.5 g/dL (11.5-16.0); IMMATURE GRAN ABSOLUTE AUTO 0.01 K/mm3 (0.00-0.10); IMMATURE GRAN PERCENT AUTO 0 % (0-1); LYMPHOCYTES ABSOLUTE AUTO 0.43 K/mm3 (0.84-5.20); LYMPHOCYTES PERCENT AUTO 11 % (21-46); MONOCYTES ABSOLUTE AUTO 0.21 K/mm3 (0.16-1.47); MONOCYTES PERCENT AUTO 5 % (4-13); Mean Corpuscular Volume 80 fL (80-100); Mean Platelet Volume 10.6 fL (9.1-12.4); NEUTROPHILS ABSOLUTE AUTO 3.22 K/mm3 (1.96-9.15); NEUTROPHILS PERCENT AUTO 83 % (41-73); Platelet Count 326 K/mm3 (150-400); RDW Coefficient Variation 16.8 % (11.7-14.2); RDW Standard Deviation 49.2 fL (35.1-46.3); Red Blood Cell Count 3.54 M/mm3 (3.80-5.20); White Blood Cell Count 3.87 K/mm3 (4.00-11.30)
[2023-09-16 06:20] LABS: International Normalized Ratio 2.07; Prothrombin Time Results 20.9 Sec (9.7-11.5)
[2023-09-16 06:27] LABS: Calcium, Blood 8.1 mg/dL (8.5-10.1); Creatinine, Blood 1.59 mg/dL (0.40-1.00); Magnesium, Blood 1.9 mg/dL (1.6-2.4); Potassium, Blood 3.8 mmol/L (3.5-5.5)
[2023-09-16 07:12] VITALS: BP 132/79
[2023-09-16] MEDS ORDERED: Acetaminophen650 M1 PO (11:24)
[2023-09-16] MEDS ORDERED: DECADRON6 M2 PO (11:30)
--- NOTE | 2023-09-16 12:37 | NUR ---
DISCHARGE SUMMARY PATIENT IS ALERT AND ORIENTED. PATIENT HAS BEEN ON ROOM AIR AND DISCHARGED HOME. PATIENT CALLED FOR A TAXI. MEDICATIONS FAXED TO PATIENTS PHARMACY. PATIENT VOLUNTEER BROUGHT PATIENT DOWN. IV REMOVED WNL
== END 2023-09-16 12:36 | disposition home health service (06) | DRG 177 ==
LOC: ER 11:07 → MEDS 11:08
PROVIDERS: Student in an Organized Health Care Education/Training Program; ADMIT Internal Medicine
PROC: 3E0DX3Z Introduction of Anti-inflammatory into Mouth and Pharynx, External Approach (ICD-10-PCS; principal; 2023-09-15)
DX: U07.1 COVID-19 (principal); I21.A1 Myocardial infarction type 2; I50.33 Acute on chronic diastolic (congestive) heart failure; I13.0 Hypertensive heart and chronic kidney disease with heart failure and stage 1 through stage 4 chronic kidney disease, or unspecified chronic kidney disease; I47.10 Supraventricular tachycardia, unspecified; N18.30 Chronic kidney disease, stage 3 unspecified; E03.9 Hypothyroidism, unspecified; E11.22 Type 2 diabetes mellitus with diabetic chronic kidney disease; I27.20 Pulmonary hypertension, unspecified; Z66 Do not resuscitate; I25.10 Atherosclerotic heart disease of native coronary artery without angina pectoris; D63.1 Anemia in chronic kidney disease; R29.6 Repeated falls; I35.0 Nonrheumatic aortic (valve) stenosis; Z79.01 Long term (current) use of anticoagulants; Z88.8 Allergy status to other drugs, medicaments and biological substances; Z79.890 Hormone replacement therapy; Z79.84 Long term (current) use of oral hypoglycemic drugs; Z79.2 Long term (current) use of antibiotics; Z79.82 Long term (current) use of aspirin; Z79.899 Other long term (current) drug therapy; Z95.1 Presence of aortocoronary bypass graft; Z86.718 Personal history of other venous thrombosis and embolism; Z86.711 Personal history of pulmonary embolism; Z90.89 Acquired absence of other organs; Z90.710 Acquired absence of both cervix and uterus; Z98.890 Other specified postprocedural states; Z98.1 Arthrodesis status; Z87.891 Personal history of nicotine dependence
CPT/HCPCS: 36415; 70450; 71046; 80048; 80053; 81001; 82550; 82947; 83735; 83880; 84100; 84443; 84484; 85025; 85027; 85610; 85730; 87804; 87807; 93005; 93010; 94640; 94664; 94760; 94761; 94762; 96361; 96374; 97110; 97161; 97165; 97535; 99285-25; A9270; G0378; J1940; J7030; U0002

== ENCOUNTER 2023-11-21 13:03 | Emergency (ER) | payer MEDICARE, OTHER ==
[~2023-11-21] VITALS: Ht 162.6 cm; Wt 86.2 kg
[~2023-11-21 13:03] MED LIST changes: +Acetaminophen650 M1 PO; +DECADRON6 M2 PO; +FLUT1DIS2 INH; +Norco 5-325 Ta1 EACH PO
[2023-11-21] MEDS ORDERED: Dextrose 50% 50 ML Syringe ONE (13:09)
[2023-11-21] MEDS ORDERED: Dextrose 50% 50 ML Syringe IV ONE (13:10)
[2023-11-21] MEDS ORDERED: NS 1,000 ML IV SCH ×2 (13:25→14:10)
[2023-11-21 13:28] LABS: BASOPHILS ABSOLUTE AUTO 0.02 K/mm3 (0.00-0.23); BASOPHILS PERCENT AUTO 0 % (0-2); EOSINOPHILS PERCENT AUTO 0 % (0-6); Hematocrit 41.3 % (33.0-51.0); Hemoglobin 10.3 g/dL (11.5-16.0); IMMATURE GRAN ABSOLUTE AUTO 0.04 K/mm3 (0.00-0.10); IMMATURE GRAN PERCENT AUTO 1 % (0-1); LYMPHOCYTES ABSOLUTE AUTO 0.97 K/mm3 (0.84-5.20); LYMPHOCYTES PERCENT AUTO 13 % (21-46); MONOCYTES ABSOLUTE AUTO 0.28 K/mm3 (0.16-1.47); MONOCYTES PERCENT AUTO 4 % (4-13); Mean Corpuscular HGB Conc 24.9 g/dL (31.5-36.5); Mean Corpuscular Volume 96 fL (80-100); Mean Platelet Volume 10.6 fL (9.1-12.4); NEUTROPHILS ABSOLUTE AUTO 6.18 K/mm3 (1.96-9.15); NEUTROPHILS PERCENT AUTO 83 % (41-73); Platelet Count 260 K/mm3 (150-400); RDW Coefficient Variation 28.1 % (11.7-14.2); RDW Standard Deviation 97.7 fL (35.1-46.3); Red Blood Cell Count 4.29 M/mm3 (3.80-5.20); White Blood Cell Count 7.49 K/mm3 (4.00-11.30)
[2023-11-21 13:44] LABS: PCO2 Arterial 16.5 mmHg (35-45); PO2 Arterial 340 mmHg (80-100); pH Blood Arterial 7.06 (7.35-7.45)
[2023-11-21 13:50] LABS: Calcium, Ionized (POC) 1.08 mmol/L (1.10-1.46); Chloride (POC) 105 mmol/L (98-108); Creatinine (POC) 1.8 mg/dL (0.6-1.0); Glucose (ISTAT POC) 224 mg/dL (70-99); Hemoglobin (POC) 14.6 g/dL (12.0-16.0); Potassium (POC) 5.5 mmol/L (3.5-5.5); Sodium (POC) 133 mmol/L (135-148); Total CO2 (POC) 13 mmol/L (21-32)
[2023-11-21] MEDS ORDERED: Vasopressin 20 UNITS in NS 100 ML IV SCH (14:00)
[2023-11-21 14:05] LABS: Source, Urine Foley catheter
[2023-11-21] MEDS ORDERED: Amiodarone HCl 50 MG / ML 3 ML Amp ONE (14:10)
[2023-11-21 14:12] LABS: Appearance, Urine Clear (Clear); Bilirubin, Urine Neg (Neg); Blood, Urine Neg (Neg); Color, Urine Yellow (P-Yellow); Glucose Qualitative, Urine Neg (Neg); Ketones, Urine 1+ (Neg); Leukocyte Esterase, Urine Neg (Neg); Nitrite, Urine Neg (Neg); Protein, Urine 2+ (Neg); Urobilinogen, Urine NORM (Normal)
[2023-11-21 14:23] LABS: Bacteria Mod /hpf; Red Blood Cells, Urine 0-2 /hpf (0-2); Squamous Epithelial Cells Few /hpf (Few); White Blood Cells, Urine 0-2 /hpf (0-5)
[2023-11-21 14:32] LABS: International Normalized Ratio 3.84; Prothrombin Time Results 37.2 Sec (9.7-11.5)
[2023-11-21 14:35] LABS: Influenza A, PCR NEGATIVE (NEGATIVE); Influenza B, PCR NEGATIVE (NEGATIVE); Resp Syncytial Virus, PCR NEGATIVE (NEGATIVE); SARS-Cov-2 (COVID-19) PCR, MMC NEGATIVE (NEGATIVE)
[2023-11-21] MEDS ORDERED: Morphine Sulfate 10 MG/ML 1MLSYR IV ONE ×2 (14:40→14:45)
[2023-11-21 14:43] VITALS: BP 49/40
[2023-11-21] MEDS ORDERED: DOPamine HCl 400 MG in Dextrose 5% 250 ML IV PRN (15:00)
[2023-11-21 15:11] LABS: Magnesium, Blood 2.3 mg/dL (1.6-2.4)
[2023-11-21 15:15] LABS: Thyroid Stimulating Hormone 6.82 uIU/mL (0.360-4.800)
[2023-11-21 15:25] LABS: Albumin/Globulin Ratio 1.2 (0.8-1.8); Bilirubin, Total 1.3 mg/dL (0.1-1.0); Bun/Creatinine Ratio 29.9 (12.0-20.0); Calcium, Blood 8.8 mg/dL (8.5-10.1); Creatinine, Blood 1.47 mg/dL (0.40-1.00); Globulin, Blood 2.5 g/dL (2.2-4.0); Potassium, Blood 5.4 mmol/L (3.5-5.5); Total Protein, Blood 5.5 g/dL (6.4-8.2)
[2023-11-21] MEDS ORDERED: Atropine Sulfate 0.1 MG/ML 10ML SYR IV ONE (17:17)
== END 2023-11-21 17:38 ==
LOC: ER 13:03
PROVIDERS: Emergency Medicine
DX: R57.9 Shock, unspecified (principal); J96.91 Respiratory failure, unspecified with hypoxia; E87.21 Acute metabolic acidosis; E11.649 Type 2 diabetes mellitus with hypoglycemia without coma; I11.0 Hypertensive heart disease with heart failure; I50.9 Heart failure, unspecified; Z66 Do not resuscitate; Z87.891 Personal history of nicotine dependence; E03.9 Hypothyroidism, unspecified; Z86.711 Personal history of pulmonary embolism; Z95.1 Presence of aortocoronary bypass graft; Z79.82 Long term (current) use of aspirin; Z79.01 Long term (current) use of anticoagulants; Z79.51 Long term (current) use of inhaled steroids; Z79.899 Other long term (current) drug therapy; Z88.1 Allergy status to other antibiotic agents
CPT/HCPCS: 0241U; 36556; 36600; 51702; 71045; 80047; 80053; 81001; 82803; 82947; 83605; 83735; 83880; 84443; 84484; 85014; 85025; 85379; 85610; 86850; 86900; 86901; 87040; 94660; 96365-59; 96368; 96375-59; 99291-25; C1751; J0282; J0461; J1265; J2270; J7060